=== PATIENT | female | born 1995 | race Caucasian/White ===

== ENCOUNTER 2018-03-05 21:29 | Emergency (ER) | payer OTHER ==
[2018-03-05 21:39] VITALS: BP 158/107
[2018-03-05] MEDS ORDERED: CRYSELLE-28 TA1 EACH PO (23:46)
[2018-03-05] MEDS ORDERED: ESCITALOPRAM OX20 MG PO (23:47)
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
[2018-03-06] MEDS ORDERED: BACLOFEN10 M1 PO (01:37)
[2018-03-06] MEDS ORDERED: ULTRAM50 M1 PO (01:37)
[2018-03-06] MEDS ORDERED: IBUPROFEN600 M1 PO (01:37)
== END 2018-03-06 01:46 ==
LOC: ERH 21:29
DX: R07.89 Other chest pain (principal)
CPT/HCPCS: 71046; 81001; 81025